=== PATIENT | female | born 1995 | race African-American/Black ===

== ENCOUNTER 2018-08-29 19:35 | Emergency (ER) | payer OTHER ==
[~2018-08-29] VITALS: Ht 160 cm; Wt 56.7 kg
[2018-08-29 19:39] VITALS: BP_SYST 122
[2018-08-29 20:00] VITALS: BP_SYST 120
[2018-08-31 11:06] LABS: HEPATITIS B CORE AB, TOTAL Negative (Negative); HEPATITIS B SURFACE AG Negative (Negative); HEPATITIS C VIRUS AB 0.1 s/co ratio (0.0-0.9)
== END 2018-08-29 20:00 | disposition home or self-care (01) ==
LOC: SED 19:35
DX: S60.932A Unspecified superficial injury of left thumb, initial encounter (principal); R03.0 Elevated blood-pressure reading, without diagnosis of hypertension; W46.1XXA Contact with contaminated hypodermic needle, initial encounter; Y93.89 Activity, other specified; Y92.89 Other specified places as the place of occurrence of the external cause; Y99.8 Other external cause status
CPT/HCPCS: 36415; 86704; 86706; 86803; 87340; 99283

== ENCOUNTER 2018-10-14 14:18 | Outpatient (CLI) | payer OTHER ==
[2018-10-15 11:08] LABS: HEPATITIS A AB, IgM Negative (Negative); HEPATITIS B CORE AB, IgM Negative (Negative); HEPATITIS B SURFACE AG Negative (Negative); HEPATITIS C VIRUS AB <0.1 s/co ratio (0.0-0.9)
== END 2018-10-14 19:01 | disposition home or self-care (01) ==
LOC: SLB 14:18
PROVIDERS: ATTEND Internal Medicine Hospice and Palliative Medicine
DX: Z77.21 Contact with and (suspected) exposure to potentially hazardous body fluids (principal); S60.949A Unspecified superficial injury of unspecified finger, initial encounter; W46.0XXA Contact with hypodermic needle, initial encounter; Y93.F9 Activity, other caregiving; Y92.239 Unspecified place in hospital as the place of occurrence of the external cause; Y99.0 Civilian activity done for income or pay
CPT/HCPCS: 36415; 86705; 86709; 86803; 87340

== ENCOUNTER 2019-01-13 10:22 | Outpatient (CLI) | payer OTHER ==
[2019-01-14 09:07] LABS: HEPATITIS B CORE AB, TOTAL Negative (Negative); HEPATITIS B SURFACE AG Negative (Negative); HEPATITIS C VIRUS AB 0.1 s/co ratio (0.0-0.9)
== END 2019-01-13 21:11 | disposition home or self-care (01) ==
LOC: SLB 10:22
PROVIDERS: ATTEND Internal Medicine Hospice and Palliative Medicine
DX: Z77.21 Contact with and (suspected) exposure to potentially hazardous body fluids (principal); S60.949A Unspecified superficial injury of unspecified finger, initial encounter; W46.0XXA Contact with hypodermic needle, initial encounter; Y93.F9 Activity, other caregiving; Y92.239 Unspecified place in hospital as the place of occurrence of the external cause; Y99.0 Civilian activity done for income or pay
CPT/HCPCS: 36415; 86704; 86706; 86803; 87340